=== PATIENT | female | born 1955 | race Caucasian/White ===

== ENCOUNTER 2021-12-02 21:22 | Emergency (ER) | payer MEDICARE, BC ==
[2021-12-02] MEDS ORDERED: Aspirin 81 MG Tab.Chew ONE (21:35)
[2021-12-02] MEDS ORDERED: Sodium Chloride 0.9% 10 ML Syringe FLUSH PRN (21:45)
[2021-12-02] MEDS ORDERED: Nitroglycerin 2% Oint 1 GM UD Packet TOP ONE (21:54)
[2021-12-02] MEDS ORDERED: Nitroglycerin 2% Oint 1 GM UD Packet ONE (21:56)
[2021-12-02 22:08] LABS: ANION GAP 9.7 mmol/L (5-15)
[2021-12-02] MEDS ORDERED: Sodium Chloride 0.9% 1,000 ML IV ONE (22:18)
== END 2021-12-03 00:20 | disposition home or self-care (01) ==
LOC: KA.ED 21:22
DX: R07.89 Other chest pain (principal); I10 Essential (primary) hypertension; N28.9 Disorder of kidney and ureter, unspecified
CPT/HCPCS: 36415; 71046; 80053; 84484; 85025; 93005; 93010; 96360; 99284; 99285-25; A9270-GY; J7030

== ENCOUNTER 2023-09-06 21:35 | Emergency (ER) | payer MEDICARE ==
[2023-09-06] MEDS: Simethicone 80 MG Tab.Chew PO ONE ×2 (21:49→22:21)
[2023-09-06 21:56] VITALS: BP 185/81; PULSE 57
== END 2023-09-06 22:30 | disposition home or self-care (01) ==
LOC: KA.ED 21:35
DX: K59.01 Slow transit constipation (principal); I10 Essential (primary) hypertension; E78.00 Pure hypercholesterolemia, unspecified; Z79.899 Other long term (current) drug therapy; Z79.82 Long term (current) use of aspirin
CPT/HCPCS: 74018; 99284